=== PATIENT | male | born 1965 | race Caucasian/White ===

== ENCOUNTER 2024-10-19 09:33 | Emergency (ER) | payer OTHER, SELFPAY ==
[2024-10-19 09:41] VITALS: BP 149/69; PULSE 88; RESP 13; TEMP 36.4; O2SAT 97; BMI 41.1
--- NOTE | 2024-10-19 09:45 | EKG_ITS ---
[place] [id number] [address] [place] [id number] Test Date: 2024-10-19 Pat Name: Jl Mccullough Department: [facility] Room: Gender: Male Mc Kay Stitcher: MELANIE : 1965 Requested By: Order Number: [id number] Reading MD: Carlo Jones Measurements Intervals [place]os[place] Rate: 88 P: 37 ME: 144 QRS: -15 QRSD: 84 T: 30 QT: 374 QTc: 452 Interpretive Statements Normal sinus rhythm Minimal voltage criteria for LVH, may be normal variant ( R in aVL ) Electronically Signed On 10-23-2024 8:09:49 PDT by Carlo Jones
--- NOTE | 2024-10-19 09:50 | DI.US.S_ITS ---
PROCEDURE: US ABDOMEN LIMITED INDICATIONS: ruq abd pain,hx gallstones TECHNIQUE: Real-time focused scanning was performed of the abdomen, with image documentation. COMPARISON: None. FINDINGS AND IMPRESSION: Cholelithiasis with sonographic Cisneros's sign, which can be seen with cholecystitis. However, there is no significant wall thickening or gallbladder distention. HIDA scan could be helpful. Severely echogenic liver limits evaluation. This is nonspecific but most commonly due to steatosis. CBD measures 5 mm, within normal limits. Dictated by: Garrett Enriquez M.D. on 10/19/2024 at 10:36 Approved by: Garrett Enriquez M.D. on 10/19/2024 at 10:36
[2024-10-19 10:11] LABS: Add Manual Diff / Slide Review NO; Hematocrit 42.1 % (41-53); Hemoglobin 14.2 g/dL (13.5-17.5); Lymphocytes Absolute Auto 2400 /uL (1100-4500); Mean Corpuscular HGB Conc 33.8 % (30-36); Mean Corpuscular Hemoglobin 29.7 PG (26-34); Mean Corpuscular Volume 87.8 fL (80-100); Platelet Count 315 X10^3/uL (150-400)
[2024-10-19 10:26] LABS: Alanine Aminotransferase 43 IU/L (<50); Albumin 4.3 g/dL (3.5-5.0); Albumin Globulin Ratio 1.5 (1.0-2.8); Alkaline Phosphatase 68 U/L (38-126); Blood Urea Nitrogen 16 mg/dL (9-20); Calcium 8.8 mg/dL (8.4-10.2); Carbon Dioxide 24 mmol/L (22-32); Chloride 107 mmol/L (98-107); Estimated Glomerular Filt Rate > 60 mL/min (>60); Globulin 2.8 g/dL (1.7-4.1); Glucose 112 mg/dL (70-99); HEMOLYSIS < 15 (0-50); Lipase 135 U/L (23-300); Potassium 4.1 mmol/L (3.4-5.1); Sodium 140 mmol/L (137-145); Total Protein 7.1 g/dL (6.3-8.2)
--- NOTE | 2024-10-19 11:36 | DI.NM.S_ITS ---
PROCEDURE: NM HIDA WITH CCK PHARMACEUTICAL: 5.5 mCi Tc-99m mebrofenin IV; 2.6 mcg CCK IV. INDICATIONS: ?cholecystitis TECHNIQUE: Following intravenous administration of Tc-99m mebrofenin, sequential anterior abdominal images were obtained. To evaluate the contractile response of the gallbladder in response to Cholecystokinin (CCK), sincalide (0.02 ???g/kg) was administered by slow intravenous infusion approximately 60 minutes after the administration of the radiopharmaceutical. Sequential imaging was continued for 30 minutes after the start of CCK infusion. Gallbladder ejection fraction was calculated. COMPARISON: None. FINDINGS: Biliary scan: There is normal tracer uptake and excretion by the liver. There is normal visualization of the intrahepatic ducts, common bile duct, and gallbladder. There is normal tracer transit into the duodenum. CCK stimulation: There is normal contractile response of the gallbladder to CCK infusion. The calculated gallbladder ejection fraction is 61% ; normal values are above 35%. IMPRESSION: Patent cystic duct, excluding cholecystitis. Normal gallbladder ejection fraction. Dictated by: Garrett Enriquez M.D. on 10/19/2024 at 16:42 Approved by: Garrett Enriquez M.D. on 10/19/2024 at 16:43
--- NOTE | 2024-10-19 11:56 | DI.CT.S_ITS ---
PROCEDURE: CT CHEST ABD PEL W CON INDICATIONS: RUQ pain/rib pain TECHNIQUE: After the administration of intravenous contrast, 5 mm thick sections acquired from the lung apices to the symphysis. 5 mm coronal and sagittal reformats were performed, with additional 7 mm MIP reformats through the lungs. For radiation dose reduction, the following was used: automated exposure control, adjustment of mA and/or kV according to patient size. COMPARISON: [facility], , ABDOMEN LIMITED, 10/19/2024, 10:01. FINDINGS: Image quality: Diagnostic Lungs and pleura: No pneumothorax or hemothorax. No airspace consolidation or pleural effusion. Small pulmonary nodules and granulomas are present, measuring up to 4 mm in the left lower lobe follow-up imaging is optional if the patient is considered high risk for pulmonary malignancy in 1 year. Mediastinum, heart, and esophagus: Trace hiatal hernia. Normal heart size. No enlarged lymph nodes by size criteria. Chest wall and thyroid: Unremarkable Liver: Suspect hepatic steatosis. Gallbladder and biliary system: Cholelithiasis, nondilated Pancreas: No ductal dilation Spleen: Nonenlarged Adrenals: Mild bilateral thickening. No discrete nodule Kidneys: No solid renal mass or hydronephrosis Vessels and lymph nodes: The main portal vein is patent. No abdominal aortic aneurysm. No lymphadenopathy by size criteria. Bowel and peritoneum: No acute small bowel obstruction. No drainable abscess or ascites. Colonic diverticulosis. Appendix is nondilated. Body wall: Small fat containing inguinal hernias. Pelvis: Under distended urinary bladder. Unremarkable prostate on limited CT evaluation. Bones: No aggressive appearing osseous abnormality. Degenerative changes are seen. No acute displaced fracture. IMPRESSION: Cholelithiasis without acute inflammation on CT. Suspected hepatic steatosis. No acute displaced fracture is seen. Other incidental findings above. Dictated by: Garrett Enriquez M.D. on 10/19/2024 at 13:02 Approved by: Garrett Enriquez M.D. on 10/19/2024 at 13:08
--- NOTE | 2024-10-19 12:22 | ED_ITS ---
<Statement entered by Brent Guerin MD - 11/10/24 07:33> I was personally available for consultation in the Department at the time the patient was seen HPI - Abdominal Pain General Chief Complaint: Abdominal Pain Stated Complaint: wic ref gallbladder Time Seen by Provider: 10/19/24 11:36 Source: patient Mode of arrival: Ambulatory History of Present Illness HPI narrative: 59-year-old male with past medical history hypertension, cholelithiasis presents to the ED with 2 weeks of constant right upper quadrant pain. Pain is aggravated with movements and changing positions. Patient is unsure if pain is aggravated with food. No known trauma or injuries. States he has been playing more golf than usual, which is the only extra physical activity that he has done. Endorses mild nausea. Denies fever, chills, chest pain, vomiting, lightheadedness, dizziness, syncope. Patient states that he has some shortness of breath at baseline, which he says is due to his weight. Patient was diagnosed in 2019 with cholelithiasis which was an incidental finding from some other imaging. Patient had 1 prior attack of gallbladder pain, however this pain feels different. Related Data Allergies Allergy/AdvReac Type Severity Reaction Status Date / Time No Known Drug Allergies Allergy Verified 10/19/24 09:41 Review of Systems Constitutional Constitutional: Denies chills, Denies fatigue, Denies fever(s), Denies frequent falls, Denies lethargy and Denies weakness Eyes Eyes: Denies change in vision, Denies eye discharge, Denies irritation and Denies loss of vision ENT Ears, Nose, Mouth, and Throat: Denies change in voice, Denies dizziness, Denies neck pain, Denies sore throat and Denies throat swelling Cardiovascular Cardiovascular: Denies chest pain, Denies irregular heart rhythm, Denies lightheadedness, Denies palpitations, Denies dyspnea, Denies dyspnea on exertion and Denies orthopnea Respiratory Respiratory: Denies cough, Denies dyspnea, Denies dyspnea on exertion and Denies wheezing Gastrointestinal Gastrointestinal: Reports abdominal pain, Denies change in bowel habits, Denies diarrhea, Denies nausea and Denies vomiting Comments: RUQ pain Musculoskeletal Musculoskeletal: Denies neck pain and Denies numbness Integumentary/Breasts Skin/Breast: Denies pruritus, Denies erythema, Denies rash and Denies wounds Neurologic Neurologic: Denies behavioral changes, Denies confusion, Denies dizziness, Denies frequent falls, Denies loss of vision, Denies numbness and Denies weakness Psychiatric Psychiatric: Denies anxiety, Denies behavioral changes, Denies confusion, Denies depression, Denies homicidal ideation and Denies suicidal ideation Endocrine Endocrine: Denies fatigue, Denies flushing and Denies palpitations Hematologic/Lymphatic Hematologic/Lymphatic: Denies easy bruising Allergic/Immunologic Allergic/Immunologic: Denies urticaria, Denies throat swelling and Denies wheezing Patient History Social History Smoking Status: Unknown if ever smoked Smoking Status: Unknown if ever smoked Exam Narrative Exam Narrative: Const General:?cooperative, healthy appearing and comfortable HENFL Head:?normal to inspection Ears:?hearing grossly normal bilaterally Nose:?external nose normal Face and sinus:?normal facial exam and sinuses nontender Mouth:?oral mucosae normal Throat:?posterior oropharynx normal Eyes General:?appearance normal, both eyes and all related structures Neck Neck:?normal visual inspection and no lymphadenopathy noted Resp Effort & Inspection:?normal respiratory effort Auscultation:?clear to auscultation bilaterally Cardio Rate:?regular rate Rhythm:?regular rhythm GI Abdomen is soft, nondistended, tender to palpation in the right upper quadrant. No CVA tenderness. Musculoskeletal There is bony tenderness to palpation of the right lower ribs on the lateral aspect. No deformities or bruising noted on exam. Neuro General:?patient alert, patient awake and patient oriented x3 Initial Vital Signs Initial Vital Signs: Vital Signs Temperature 97.6 F 10/19/24 09:41 Pulse Rate 88 10/19/24 09:41 Respiratory Rate 13 10/19/24 09:41 Blood Pressure 149/69 H 10/19/24 09:41 Pulse Oximetry 97 10/19/24 09:41 Oxygen Delivery Method Room Air 10/19/24 09:41 Course Orders Ordered: ED Orders 10/19/24 09:45 EKG-12 Lead Stat 10/19/24 09:50 US abdomen limited Stat Complete Blood Count AUTO DIFF Stat Comprehensive Metabolic Panel Stat Lipase Stat 10/19/24 11:36 NM HIDA with cck Stat 10/19/24 11:56 CT chest abd pel w con Stat 10/19/24 12:59 Urine Culture Stat Urine Microscopic Stat Ondansetron HCl (Ondansetron 4 Mg/2 Ml Inj) 4 mg IV NOW PRN PRN Reason: Nausea And Vomiting Ondansetron HCl (Ondansetron 4 Mg Odt) 4 mg PO NOW PRN PRN Reason: Nausea And Vomiting Discontinued Medications Ketorolac Tromethamine (Ketorolac 30 Mg/Ml Vial) 15 mg IV NOW ONE Stop: 10/19/24 14:09 Last Admin: 10/19/24 14:40 Dose: 15 mg Documented By: GRACE Vital Signs Vital signs: Vital Signs - 8 hr 10/19/24 09:41 Temperature 97.6 F Pulse Rate 88 Respiratory Rate 13 Blood Pressure 149/69 H Pulse Oximetry 97 Oxygen Delivery Method Room Air MDM - Abdominal Pain Lab Data 10/19/24 09:50 10/19/24 09:50 Labs: Lab Results 10/19/24 10/19/24 Range/Units 09:50 12:59 WBC 6.6 (4.5-11.0) X10^3/uL RBC 4.80 (4.5-5.9) X10^6/uL Hgb 14.2 (13.5-17.5) g/dL Hct 42.1 (41-53) % MCV 87.8 (80-100) fL MCH 29.7 (26-34) PG MCHC 33.8 (30-36) % RDW 13.7 (11.6-14.8) % Plt Count 315 (150-400) X10^3/uL Neut % (Auto) 49.4 L (50-75) % Lymph % (Auto) 36.6 (25-40) % [place] % (Auto) 8.8 (3-14) % Eos % (Auto) 4.2 H (2-4) % Baso % (Auto) 1.0 (0-2) % Neut # (Auto) 3300 (7012-2611) /uL Lymph # (Auto) 2400 (5692-7591) /uL [place] # (Auto) 600 (0-900) /uL Eos # (Auto) 300 (0-450) /uL Baso # (Auto) 100 (0-100) /uL Sodium 140 (137-145) mmol/L Potassium 4.1 (3.4-5.1) mmol/L Chloride 107 (98-107) mmol/L Carbon Dioxide 24 (22-32) mmol/L BUN 16 (9-20) mg/dL Creatinine 0.91 (0.66-1.25) mg/dL Estimated GFR > 60 (>60) mL/min BUN/Creatinine Ratio 17.6 (6-22) Glucose 112 H (70-99) mg/dL Calcium 8.8 (8.4-10.2) mg/dL Total Bilirubin 0.5 (0.2-1.3) mg/dL AST 33 (17-59) IU/L ALT 43 (<50) IU/L Alkaline Phosphatase 68 (38-126) U/L Total Protein 7.1 (6.3-8.2) g/dL Albumin 4.3 (3.5-5.0) g/dL Globulin 2.8 (1.7-4.1) g/dL Albumin/Globulin Ratio 1.5 (1.0-2.8) Lipase 135 (23-300) U/L Urine RBC None seen (0-5/HPF) Urine WBC None seen (0-5/HPF) Ur Squamous Epith Cells None seen (0-5/HPF) Amorphous Sediment 1+ Urine Bacteria None seen (None) Ur Culture Indicated? Cult not indicated Vol Urine Centrifuged 10ml (spun) Point of care testing: Urine Dip Bedside Urine Glucose Negative Bedside Urine Bilirubin - Negative Bedside Urine Ketone - Negative Urine Specific [place] 1.005 Bedside Urine Occult Blood - Negative Bedside Urine pH 6.0 Bedside Urine Protein - Negative Bedside Urine Urobilinogen - Negative Bedside Urine Nitrite - Negative Bedside Urine Leukocytes - Negative Esterase MDM Narrative Medical decision making narrative: 59-year-old male with past medical history hypertension, cholelithiasis presents to the ED with 2 weeks of constant right upper quadrant pain. Concern for cholecystitis versus cholelithiasis versus musculoskeletal sprain/strain versus nephrolithiasis versus other intra-abdominal pathology versus other. Labs and ultrasound were obtained. Labs unremarkable. Ultrasound shows cholelithiasis with sonographic Cisneros's sign, which can be seen with cholecystitis. However there is no significant wall thickening or gallbladder distention. HIDA scan could be helpful. Severely echogenic liver limits evaluation. This is nonspecific but most commonly due to steatosis. CBD measures 5 mm, within normal limits. CT chest abdomen pelvis was obtained which shows cholelithiasis without acute inflammation. Suspected hepatic steatosis. No acute displaced fracture is seen. There are some incidental findings including small pulmonary nodules and granulomas in the left lower lobe. HIDA scan was obtained to rule out cholecystitis. Scan shows patent cystic duct, excludes cholecystitis. Normal gallbladder ejection fraction. Discussed findings with patient that symptoms could possibly be musculoskeletal in etiology versus biliary colic. Recommend patient take Tylenol, ibuprofen for pain. Recommend limiting fatty foods in the diet. Recommend follow-up with GI/PCP for further evaluation of the gallstones. ED return precautions discussed with patient. Patient verbalized understanding. Medical records reviewed: Yes Discharge Plan Departure Patient Disposition: Home Clinical Impression: Right upper quadrant abdominal pain Instructions: DI for Abdominal Pain-Adult Activity Restrictions/Additional Instructions: You were evaluated in the emergency department for right upper quadrant pain. The ultrasound, CT did show gallstones but no evidence of gallbladder inflammation/cholecystitis. The HIDA scan was further performed to rule out cholecystitis. The HIDA scan was also normal. Your physical exam also was consistent with a musculoskeletal pattern of injury. You may continue to take ibuprofen and Tylenol at home for your symptoms. Please follow-up with your PCP or GI specialist for further evaluation of the gallstones. Please continue to monitor your pain and return to the ED if you have worsening symptoms. Stand Alone Forms: Patient Portal/API
[2024-10-19 13:29] LABS: Culture Indicated Urine Cult Not Indicated
[2024-10-19] MEDS: KETOROLAC 30 MG/ML VIAL 15 MG IV (14:40)
[2024-10-19 17:16] VITALS: BP 116/67; PULSE 65; RESP 17; O2SAT 95
== END 2024-10-19 17:17 | disposition home or self-care (01) ==
PROVIDERS: Emergency Medicine; Emergency Provider Student in an Organized Health Care Education/Training Program
DX: R10.11 Right upper quadrant pain (principal)
CPT/HCPCS: 36415; 71260; 74177; 76705; 78227; 80053; 81003; 81015; 83690; 85025; 87086; 93005; 96374; 99284; A9537; J1885; J2805; Q9967